=== PATIENT | female | born 1950 | race Caucasian/White ===

== ENCOUNTER 2025-10-07 09:32 | Outpatient (AMB) | payer MEDICARE, SELFPAY ==
--- NOTE | 2025-10-07 09:45 | A.PHYSOV_ITS ---
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 Allergies Penicillins Allergy (Unknown, Verified 10/07/25 09:46) Unknown shellfish derived (shellfish) Allergy (Unknown, Verified 10/06/25 10:57) Unknown PFSH Surgical History Hx of tonsillectomy History of cataract surgery H/O gastric bypass History of carpal tunnel surgery Pacemaker Social History Alcohol intake: current Alcohol intake frequency: does not drink Patient Tobacco Use Status: Never used Tobacco Physical Exam Vital Signs: BMI result Body Mass Index 30.0 Office Procedures AMB Knee Injection AMB Knee Injection Procedure Details: Bilateral Knee injection: The risks, benefits and complications of the left knee injection were discussed with the patient including but not limited to increased serum glucose, infection, nerve pain, fat atrophy, pigment augmentation, bleeding and pain. All questions were answered to the patient's satisfaction. Verbal consent was obtained. The patient was eager to proceed. Using aseptic technique with Betadine, ethyl chloride was then used to desensitize the skin. Using a 22-gauge needle 40 mg of Kenalog and 3 mL 2% lidocaine were injected into the knee joint. A Band-Aid was applied. Patient tolerated the procedure well without immediate complication. Postinjection instructions were given. The procedure was repeated on the right. Knee Injection - : Bilateral All charges added?: Procedure code (CPT) selection complete Office Meds Kenalog 40 mg/mL suspension for injection Performing Provider: MARKO Vuong Per[facility] Administered by: MARKO Vuong on 10/07/25 10:00 Dose Route Admin Location Dispensed Lot Number Expiration Date [facility] [employer] 40 mg intra-articular 1 mL [id number] [employer] Total Dispensed Waste 1 mL 0 % lidocaine (PF) 20 mg/mL (2 %) injection solution Performing Provider: MARKO Vuong [facility] Administered by: MARKO Vuong on 10/07/25 10:00 Dose Route Admin Location Dispensed Lot Number Expiration Date [employer] 60 mg intra-articular 50 mL [id number] Total Dispensed Waste 50 mL 0 % Assessment & Plan Assessment & Plan (1) Bilateral primary osteoarthritis of knee: Code(s): M17.0 - Bilateral primary osteoarthritis of knee Category: Medical Plan Ms. Contreras is a 75-year-old female seen in evaluation today for bilateral knee pain secondary to osteoarthritis. Today she consented to bilateral knee corticosteroid injection. She was given post-injection instructions, recommend: Moist heat compresses for 15 minutes up to 5 times daily. Continue low-impact activities such as walking, biking and swimming. Patient is requesting referral to Orthopedics for potential total knee replacement as her knee is getting much worse. Patient does have the complication of bilateral lower extremity lymphedema. I will place referral today. Follow-up with our office in 3 months as needed. Thank you for allowing me to participate in the care of your patient. Orders: Orders AMB Knee Injection Today M17.0 - Bilateral primary osteoarthritis of knee Referrals Orthopedics Referral M17.0 - Bilateral primary osteoarthritis of knee Coding Level of Care Code Procedure Only Diagnoses Bilateral primary osteoarthritis of knee M17.0 CPT Codes AMB Knee Injection - Hip/Bursa Injection - : Bilateral ([id number])
--- OUTSIDE RECORDS SUMMARY | 2025-10-07 10:27 | XMS_ITS | Encounter Summary ---
Author Organization [facility] Address [address] [place] [address] Care Team Providers Care Dietitian Helper Name Role Phone Jessica Luque MD Primary Care Provider [phone] Encounter Details Date Type Department Care Team (Late st Contact Info) Description 09/07/2025 Results Follow-Up [facility] [address] [place] [id number] Nuno Ventura MD [address] [place] [address] [address] [place] [id number] Social History Tobacco Use Types Packs/Day Years Used Date Smoking Tobacco: Never Smokeless Tobacco: Never Alcohol Use Standard Drinks/Week Comments Yes 7 (1 standard drink = 0.6 oz pur e alcohol) Housing Instability Answer Date Recorde d Are you worried that in the next 2 months you may not have stable housing? No 10/31/2024 Food Access & Nutrition Answer Date Rec orded Do you have access to a vari ety of food including fruits and vegetables? No 10/31/2024 Health Literacy Answer Date Recorded How often do you need to hav e someone help you when you read instructions, pamphlets, or other written material from your doctor or pharmacy? Never 10/31/2024 Caregiver: How often do you need to have someone help you when you read instructions, pamphlets, or other written material from your doctor or pharmacy? Not on file 10/31/2024 Financial Risk Answer Date Recorded How hard is it for you to pa y for the very basics like food, housing, medical care, and air conditioning / heating? Not very hard 10/31/2024 Transportation Answer Date Recorded Has the lack of transportati on kept you from meetings, work, or from getting things needed for daily living? No Has the lack of transportati on kept you from medical appointments or from getting medications? No 10/31/2024 Social Isolation Answer Date Recorded How often do you feel lonely or isolated from th ose around you? Never 10/31/2024 Food Risk Answer Date Recorded Within the past 12 months we worried whether our food would run out before we got money to buy more. Never true 10/31/2024 Within the past 12 months th e food we bought just didn't last and we didn't have money to get more. Never true 10/31/2024 Dependent Care Answer Date Recorded Do you need help finding or paying for care for your loved ones. For example, childcare attendant or elderly care for an older adult? No 10/31/2024 Education Answer Date Recorded Do you think completing more education or training, like finishing a GED, going to college, or learning a trade, would be helpful for you? No 10/31/2024 Living Situation Answer Date Recorded What is your living situation? Unrecognized valu e 10/31/2024 Comments No Sex and Gender Information Value Date Recorded Sex Assigned at Female 08/11/2025 8:34 AM EDT Legal Sex Female 6:22 AM EST Gender Identity Female 04/15/2025 1:41 PM EDT Sexual Orientation Not on file documented as of this encounter Plan of Treatment Upcoming Encounters Date Type Department Care Team (Late st Contact Info) Description 10/08/2025 11:00 AM EST [facility] [address] [facility] [place] [phone] Jessica Luque MD [address] [facility] [place] 08/11/2026 8:30 AM EDT Ancillary Procedure [facility] - [address] [facility] [address] [place] [address] Scheduled Procedures Name Priority Associated Diagnoses Date/Ti me ABLATION A-FIB Paroxysmal atrial fibrillation ([facility] V24, [facility] V28) LEFT ATRIAL APPENDAGE CLOSUR E (OTHER) Paroxysmal atrial fibrillation ([facility] V24, [facility] V28) documented as of this encounter Visit Diagnoses Not on filedocumented in this encounter Additional Health Concerns Assessment Noted Time PHQ-9 Depression Total Score: 1 10/31/20 24 9:30 AM EST documented as of this encounter Care Teams Dietitian Helper Relationship Specialty Start Date End Date Jessica Luque MD [address] [place] [address] PCP - General Internal Medicine 06/03/25 documented as of this encounter
--- OUTSIDE RECORDS SUMMARY | 2025-10-07 10:27 | XMS_ITS | Clinical Summary ---
Author Organization [facility] [address] [place] [address] [place] [phone] Phone Care Team Providers Care Search Engine Optimizer Name Role Phone Jessica Luque MD Primary Care Provider [phone] Allergies Active Allergy Reactions Criticality Noted Date Comments Ceftriaxone 01/10/2019 Other Reaction(s): Other (See Comments), Rash/Dermatitis Erythromycin 01/05/2023 Levothyroxine 09/19/2023 Several constipation, and lower heart rate Montelukast Headache 06/15/2010 Other 01/17/2011 Seasonal allergies- Other Reaction(s): Runny Nose/Rhinitis Oxycodone Nausea And Vomiting 02/01/2015 Penicillin G Benzathine 11/02/2005 Shellfish Derived 01/06/2008 Other Reaction(s): Hives/Urticaria Medications silver sulfADIAZINE (SILVADENE, SSD) 1 % cream Apply to affected area sparingly daily - twice daily to blister/open skin. 4 Active fluticasone propionate (FLONASE) 50 mcg/actuation nasal spray USE 2 SPRAYS IN EACH NOSTRIL ONCE DAILY 2 Active UNABLE TO FIND Take 1 tablet by mouth 1 (one) time each day. Calcium Carbonate-Vit D-Min (CALCIUM 1200 OR) Active loratadine 10 mg capsule Take 1 Cap by mouth daily. Active MULTIVITAMIN ORAL 1 po qd Active vitamin B complex (B COMPLEX ORAL) 1 po qd Active folic acid (FOLVITE) 1 mg tabletIndication s:Macrocytosis Take 1 tablet (1 mg total) by mouth 1 (one) time each day. 30 each 11 4 025 Active zinc oxide 20 % ointment Apply topically if needed for irritation. 56.7 g 11 5 026 Active bisacodyL (DULCOLAX) 5 mg EC tablet Take 2 tablets by mouth right before beginning bowel prep. See instructions provided by the office 2 tablet 5 Active Additional Information Patient not taking.Reported on 07/23/2025 polyethylene glycol (Golytely) 236-22.74-6.74 -5.86 gram solution Take 4L by mouth once for one dose. May substitue any PEG. Starting at 6PM the night before your procedure drink 1 8oz glasses at your own pace until you complete half of the gallon. Finish 2nd half of the gallon 5 hours before your procedure. 4000 mL 5 Active Additional Information Patient not taking.Reported on 07/23/2025 alendronate (FOSAMAX) 70 mg tabletIndication s:Osteoporosis, unspecified osteoporosis type, unspecified pathological fracture presence TAKE 1 TABLET WEEKLY WITH 8 OZ OF WATER. STAY UPRIGHT AND DO NOT LIE DOWN. AVOID FOOD AND DRINK FOR 30 MINUTES. 12 tablet 1 5 Active apixaban (Eliquis) 5 mg tablet TAKE ONE TABLET BY MOUTH TWICE A DAY 180 tablet 3 5 Active atenoloL (TENORMIN) 25 mg tablet TAKE ONE TABLET BY MOUTH EVERY DAY 90 tablet 3 5 Active furosemide (LASIX) 40 mg tablet TAKE ONE TABLET BY MOUTH EVERY DAY 30 tablet 5 5 Active Active Problems Problem Noted Date Diagnosed Date Morbid obesity (CMS/[facility] V24, CMS/[facility] V28) 2024 Murmur, cardiac 04/07/2025 Assessment & Plan (04/07/2025 9:00 AM EDT): As above. Orders: Transthoracic echocardiogram (TTE) complete with PRN contrast, bubble, strain, and 3D order panel; Future Hypertension 04/04/2024 Assessment & Plan (04/07/2025 9:00 AM EDT): Pressure is well-controlled on current antihypertensive regimen; continue atenolol and furosemide. Most recent metabolic panel completed 10/31/2024 shows normal renal function and electrolytes. Sick sinus syndrome (CMS/HCC V24, CMS/HCC V28) 0 12/17/2023 Assessment & Plan (04/07/2025 9:00 AM EDT): Now status post pacemaker placement; we will continue with in office and remote device checks as per device clinic protocol. Orders: ECG 12 lead Subclinical hypothyroidism 06/28/2023 Hyperlipidemia 03/01/2020 Assessment & Plan (04/07/2025 9:00 AM EDT): Most recent lipid panel completed 10/31/2024 showed a total cholesterol of 225, HDL 97, and LDL 111 with triglycerides of 86. While LDL is elevated above 100, HDL is cardioprotective. Has never been on a statin and no interest in doing so. 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 fib, also reviewed with Dr. Blount her wish to take ibuprofen occasionally for her arthritis and significant knee pains. If she has not had any atrial fibrillation in quite some time we can consider taking her off of the Eliquis, if she has had some intermittent atrial fibrillation we may consider starting a PPI and keeping her on Eliquis and allowing her to take intermittent NSAIDs for her significant pain. A more aggressive option is looking into a watchman procedure which I did review in some detail today. Heart rate is controlled on BB, anticoagulated on Eliquis. She understands risk and benefits of anticoagulation and wished to continue. Assessment & Plan (04/07/2025 9:00 AM EDT): 0% burden on most recent device check from January 2025; however, the patient feels as though she may be experiencing very brief episodes. Rate is well-controlled on beta-blockade. She remains anticoagulated with Eliquis for cardioembolic prophylaxis; she would like to come off Eliquis if possible as she states she needs to wear Kevlar sleeves when gardening otherwise she will bruise very easily. She is interested in discussing a Watchman further and we will facilitate an appointment with electrophysiology for this purpose. Until then, she will continue with Eliquis 5 mg twice daily given her [id number]-SADg score of 4 (2 points for age, 1 point for gender modifier, and 1 point for hypertension); this is the appropriate dose for her age of less than 80 years, weight of greater than 60 kg, and creatinine of less than 1.5. She is aware to seek urgent medical attention for any uncontrolled bleeding, signs or symptoms of GI or other internal bleeding, or for any head injury. Mitral regurgitation 12/21/2005 Assessment & Plan (04/07/2025 9:00 AM EDT): Previous echocardiogram showing mild MR in 2019; most recent echocardiogram from February 2024 showing only trace MR. We will continue to monitor this with serial echocardiograms. Given new murmur noted on exam today (not previously documented at past visits) as well as mild shortness of breath with exertion, we will update the echocardiogram for further evaluation of possible underlying valvular dysfunction. Orders: Transthoracic echocardiogram (TTE) complete with PRN contrast, bubble, strain, and 3D order panel; Future Syncope and collapse 12/21/2005 Resolved Problems Problem Noted Date Diagnosed Date Resolved Date COVID-19 11/07/2021 04/08/2025 Overview (09/22/2024): Rapid at home Obesity (BMI 30-39.9) 03/01/20202024 Dermatophytosis of nail 10/15/2019 06/02/2025 Headache 07/13/2011 04/08/2025 Diverticulitis of colon without hemorrhage 12/21/2005 04/08/2025 Major laceration of liver 12/21/2005 Overview (09/22/2024): syncope IMO update Encounters Date Type Department Care Team Description 09/24/[address] [phone] Neelam Kamara, RN 09/24/[address] [address] Neelam Kamara, RN 09/12/2025 1:15 AM EST Ancillary Procedure [facility] Cardiology [facility] [address] [place] [address] 09/11/2025 7:10 AM EST - 09/11/2025 11:59 PM EST Hospital Encounter Radiology Department [address] [address] Encounter for screening mammogram for malignant neoplasm of breast Discharge Disposition: Home or Self Care 09/07/2025 8:32 AM EST - 09/07/2025 11:59 PM EST Hospital Encounter [facility] CT Scan [address] [place] [address] Paroxysmal atrial fibrillation (CMS/HCC V24, CMS/HCC V28) Discharge Disposition: Home or Self Care 09/07/2025 Results Follow-Up [facility] Cardiology [facility] [address] [place] [address] Nuno Ventura MD 08/11/2025 9:00 AM EDT Ancillary Procedure [facility] - [address] [place] [address] Encounter for adjustment or management of cardiac device 08/10/2025 Telephone [facility] Structural Heart [address] [place] [address] Alexsandra Alvarado RN 08/07/2025 Results Follow-Up [facility] [address] [place] [address] Kary Fernandez MA 07/23/2025 8:40 AM EDT Consult [facility] Cardiology [facility] - [facility] [address] [place] [address] Nuno Ventura MD Paroxysmal atrial fibrillation (CMS/HCC V24, CMS/HCC V28) (Primary Dx) 07/23/2025 Telephone [facility] Cardiology [facility] - [facility] [address] [facility] [address] [place] [address] Nuno Ventura MD from Last 3 Months Immunizations Immunization Administration Dates Next Due H1N1 Inj Preservative Free 09/20/2009 Influenza trivalent, 0.5mL ( Fluad) 65yo and older 07/27/2017 Influenza trivalent, with pr eservative (Fluzone; Afluria) 6mo and older 07/19/2021,07/26/2020,08/12/2019,08/05,08/07/2016,08/19/2015,07/28/2013 ,11/17/2012,07/13/2011,09/21/2010,06/2009 Moderna SARS-CoV-2 COVID-19, mRNA, LNP-S, preservative free 01/14/2024,10/05/2022 Pfizer (ages 12 & older) Biv alent, COVID-19 07/30/2023 Pneumococcal conjugate 13 va lent (Prevnar 13, PCV13) 2mo and older 08/23/2015 Pneumococcal polysaccharide 23 valent (Pneumovax 23) 2yo and older 06/18/2017,04/19/2013 Td Tetanus diptheria (Tdvax) 7yo and older 09/19/2023 Tdap Tetanus diptheria acell ular pertussis (Boostrix; Adacel) 7yo and older 10/13/2013,06/22/2009 Zoster Live 08/02/2013,04/30/2013 Zoster recombinant (Shingrix ) 19yo and older 06/18/2021,04/14/2021 Surgical History Surgery Date Site/Laterality Comments PACEMAKER IMPLANT PROCEDURE: HISTORICAL PACEMAKER GASTRIC BYPASS 2000 PROCEDURE: [place] GASTRIC RSTCV W/BYP W/SM INT RCNSTJ LIMIT ABSRPJ; COMMENT: Kyleigh APPENDECTOMY PROCEDURE: HISTORICAL APPENDECTOMY OTHER SURGICAL HISTORY PROCEDURE: [place] ARTHROTOMY W/MENISCUS REPAIR KNEE; COMMENT: right; age 9 OTHER SURGICAL HISTORY PROCEDURE: [place] STAB PHLEBT VARICOSE VEINS 1 XTR > 20 INCS CARPAL TUNNEL RELEASE 12/11,02/08 PROCEDURE: [place] NEUROPLASTY &/TRANSPOS MEDIAN NRV CARPAL TUNNE; COMMENT: [place]: left > right OTHER SURGICAL HISTORY 10/09 PROCEDURE: REPAIR DETACHED RETINA; COMMENT: Sohail; laser TONSILLECTOMY PROCEDURE: HISTORICAL TONSILLECTOMY OTHER SURGICAL HISTORY 09/14 PROCEDURE: NUCLEAR STRESS TEST; COMMENT: [facility]; neg OTHER SURGICAL HISTORY 09/14 PROCEDURE: CAT SCAN OF HEAD/BRAIN NO CONTRAST; COMMENT: [facility]; neg COLONOSCOPY 04/07 PROCEDURE: [place] COLONOSCOPY STOMA DX INCLUDING COLLJ SPEC SPX; COMMENT: Mora; sabra OTHER SURGICAL HISTORY 05/02/13 PROCEDURE: COLON CA SCRN NOT HI RSK IND; COMMENT: tics; repeat in ten yrs STOMACH SURGERY PROCEDURE: [place] UNLISTED PROCEDURE STOMACH; COMMENT: Bypass PACEMAKER IMPLANT PROCEDURE: HISTORICAL PACEMAKER OTHER SURGICAL HISTORY PROCEDURE: [place] ANES CARDIAC ELECTROPHYSIOL STDY W/RF ABLATION BREAST LUMPECTOMY Left PROCEDURE: HISTORICAL BREAST LUMPECTOMY; COMMENT: left; benign BREAST BIOPSY 2012 Left PROCEDURE: BX BREAST; PERC NEEDLE CORE W/IMAG GUID; COMMENT: neg Medical History Medical History Date Comments Cardiac pacemaker in situ 05/09/2006 DX:Car diac pacemaker in situ; COMMENT: 12/11 Heart disease, unspecified DX:He art disease, unspecified Headache(784.0) 07/13/2011 DX:Headache(784. 0) Lymphedema of both lower extremities 12/27/2015 DX:Lymphedema of both lower extremities Chronic venous stasis dermat itis of both lower extremities 12/27/2015 DX:Chronic venous stasis cristóbal matitis of both lower extremities Subclinical hypothyroidism 06/28/2023 DX:Galvez bclinical hypothyroidism Osteoarthritis DX:Osteoarthriti s Hypertension 04/04/2024 DX:Hypertension Hypertension 04/04/2024 Family History Medical History Relation Name Comments No Known Problems Brother x2 Obesity Daughter x2 Other Dermatological Disorders Daughter x2 pcos Other: degenerative joint disease Daughter x2 Diabetes Father Hypertension Mother Stroke Mother Heart attack Paternal Grandfather No Known Problems Sister Blindness Neg Hx Breast cancer Neg Hx Cataracts Neg Hx Glaucoma Neg Hx Macular degeneration Neg Hx Strabismus Neg Hx Relation Name Status Comments Brother x2 Alive Daughter x2 Alive Father Mother Paternal Grandfather Sister Alive Son Alive Social History Tobacco Use Types Packs/Day Years Used Date Smoking Tobacco: Never Smokeless Tobacco: Never Tobacco Cessation:Counseling Given: Not Answered Alcohol Use Standard Drinks/Week Comments Yes 7 [...] care for your loved ones. For example, teacher early childhood development or elderly care for an older adult? [...] PM EDT Sexual Orientation Not on file Obstetrics History Para Term AB IAB SAB Ectopic Multiple Livin g Live Births 3 3 3 3 Date Outcome GA Total Labor Labor/2nd/3rd Weight Sex Type Anes PTL Annamaria A1 A5 Name Clin Term Term Term Last Filed Vital Signs Vital Sign Reading Time Taken Comments Blood Pressure 140/82 07/23/2025 8:32 AM EDT Pulse 71 07/23/2025 8:32 AM EDT Temperature 36.7 C (98.1 F) 04/08/2025 9:50 AM EDT Respiratory Rate - - Oxygen Saturation 87% 07/23/2025 8:32 AM EDT Inhaled Oxygen Concentration - - Weight 84.4 kg (186 lb) 07/23/2025 8:32 AM EDT Height 165.1 cm (5' 5 ) 07/23/2025 8:32 AM EDT Body Mass Index 30.95 07/23/2025 8:32 AM EDT Plan of Treatment Upcoming Encounters Date Type Department Care Team (Late st Contact Info) Description 10/08/2025 11:00 AM EST Office Visit [facility] [address] [facility] [place] [phone] Jessica Luque MD [address] [place], [place] 08/11/2026 8:30 AM EDT Ancillary Procedure [facility] [address] [facility] [address] [place] [address] Scheduled Procedures Name Priority Associated Diagnoses Date/Ti me ABLATION A-FIB Paroxysmal atrial fibrillation (CMS/HCC V24, CMS/HCC V28) LEFT ATRIAL APPENDAGE CLOSUR E (OTHER) Paroxysmal atrial fibrillation (CMS/HCC V24, CMS/HCC V28) Health Maintenance Due Date Last Done Comments Depression Screening 11/05/2024 10/31/2024 Falls Risk Assessment 10/31/2025 10/31/2024 Medicare Annual Wellness Visit 10/31/2025 10/31/2024 Social Influencers of Health Screening 10/31/2025 10/31/2024 COVID-19 Vaccine ( season) 2026 07/18/2025, 03/16/2025, 08/04/2024, Additional history exists Hypertension/CHF/CAD Annual BMP Blood Test 08/07/2026 08/07/2025, 10/31/2024, 01/21/2024 Cholesterol Screening (Lipid Panel) 08/07/2030 08/07/2025, 10/31/2024, 01/21/2024 Osteoporosis Screening (Bone Density Screening) 07/05/2033 07/05/2023, 01/14/2020, 07/25/2017 DTaP,Tdap,and Td Vaccines (4 - Td or Tdap) 09/19/2033 09/19/2023, 10/13/2013, 06/22/2009 Hepatitis C Screening Completed 06/29/2015 Pneumococcal Vaccine: 50+ Years Completed 06/18/2017, 08/23/2015, 04/19/2013 Zoster Vaccines Completed 06/18/2021, 04/05, 08/02/2013, Additional history exists RSV Immunization Adult Patients Completed 07/25/2023 Influenza Vaccine Completed 07/18/2025, , 07/25/2023, Additional history exists Breast Cancer Screening Discontinued 09/11/20, 09/10/2024, 09/04/2023, Additional history exists HIB Vaccines Aged Out No longer eligi ble based on patient's age to complete this topic HPV Vaccines Aged Out No longer eligi ble based on patient's age to complete this topic Hepatitis A Vaccines Aged Out No long er eligible based on patient's age to complete this topic Hepatitis B Vaccines Aged Out No long er eligible based on patient's age to complete this topic IPV Vaccines Aged Out No longer eligi ble based on patient's age to complete this topic MMR Vaccines Aged Out No longer eligi ble based on patient's age to complete this topic Meningococcal ACWY Vaccine Aged Out N o longer eligible based on patient's age to complete this topic Meningococcal B Vaccine Aged Out No l onger eligible based on patient's age to complete this topic RSV Immunization Patients Under 20 months Aged Out No longer eligible based on patient's age to complete this topic Varicella Vaccines Aged Out No longer eligible based on patient's age to complete this topic Medical Devices Implanted Type Area Electrologist Device Identifier Shelf Expiration Date Model / Serial / Lot Erika-Bc Akin Guerrier [id number] Implanted:04/05 (Quantity not on file) Cardiac Pacemaker [employer] AKIN GUERRIER / [id number] / Procedures Procedure Name Priority Date/Time Associated Diagnosis Comments CARDIAC DEVICE CHECK- REMOTE- MURJ Routine 09/12/2025 1:10 AM EST MG MAMMO DIGITAL SCREENING W MILO BILAT Routine 09/11/2025 7:51 AM EST Encounter for screening mammogram for malignant neoplasm of breast CT ANGIO HEART W 3D IMAGING/FUNCTION Routine 09/07/2025 9:24 AM EST Paroxysmal atrial fibrillation (CMS/HCC V24, CMS/HCC V28) CARDIAC DEVICE CHECK- IN CLINIC- MURJ Routine 08/11/2025 11:02 AM EDT Encounter for adjustment or management of cardiac device THYROID STIMULATING HORMONE Routine 08/07/2025 10:54 AM EDT Screening for metabolic disorder LIPID PANEL WITH REFLEX TO DIRECT LDL Routine 08/07/2025 10:54 AM EDT Screening for metabolic disorder COMPREHENSIVE METABOLIC PANEL Routine 08/07/2025 10:54 AM EDT Screening for metabolic disorder ECG 12-LEAD Routine 07/23/2025 9:34 AM EDT Paroxysmal atrial fibrillation (CMS/HCC V24, CMS/HCC V28) DXA BONE DENSITY STUDY 1+ SITS AXIAL SKEL Routine 07/05/2023 8:50 AM EDT Encounter for screening for osteoporosis HM HEPATITIS C SCREENING Routine 06/29/2015 from Last 3 Months or Most Recently Relevant to Health Maintenance Results * Cardiac device check - Remote- MURJ (09/12/2025 1:10 AM EST) Date Time Interrogation Session [id number] CV DEVICE CHECK Type Interrogation Session Remote CV DEVICE CHECK Implantable Pulse Generator Electrologist BIO CV DEVICE CHECK Implantable Pulse Generator Type IPG CV DEVICE CHECK Implantable Pulse Generator Model Evia DR-T CV DEVICE CHECK Implantable Pulse Generator Serial Number [id number] CV DEVICE CHECK Implantable Pulse Generator Implant Date [id number] CV DEVICE CHECK Battery Remaining Percentage 30.00 CV DEVICE CHECK Battery Status Middle of Service CV DEVICE CHECK Jasen Statistic RA Percent Paced 87.00 CV DEVICE CHECK Jasen Statistic RV Percent Paced 0.00 CV DEVICE CHECK Atrial Tachy Statistic AT/AF [place] Percent 0.00 CV DEVICE CHECK Lead Channel Sensing Intrinsic Amplitude 0.800 CV DEVICE CHECK Lead Channel Impedance Value 468 CV DEVICE CHECK Lead Channel Pacing Threshold Amplitude 0.500 CV DEVICE CHECK Lead Channel Pacing Threshold Pulse Width 0.4 CV DEVICE CHECK Lead Channel RA Pacing Threshold Date 2025-09-07 CV DEVICE CHECK Lead Channel Setting Pacing Pulse Width 0.4 CV DEVICE CHECK Lead Channel Sensing Intrinsic Amplitude 9.200 CV DEVICE CHECK Lead Channel Impedance Value 527 CV DEVICE CHECK Lead Channel RV Pacing Threshold Date 2025-09-07 CV DEVICE CHECK Lead Channel Setting Pacing Amplitude 2.000 CV DEVICE CHECK Lead Channel Setting Pacing Pulse Width 0.4 CV DEVICE CHECK Jasen Setting Mode (NBG Code) DDD-CLS CV DEVICE CHECK Jasen Setting Lower Rate Limit 65 CV DEVICE CHECK Jasen Setting AT Mode Switch Rate 160 CV DEVICE CHECK Jasen Setting Maximum Tracking Rate 110 CV DEVICE CHECK Jasen Setting Maximum Sensor Rate 105 CV DEVICE CHECK Jasen Setting PAV Delay 270 CV DEVICE CHECK Jasen Setting JEIMY Delay 270 CV DEVICE CHECK Date of Service 2025-09-11 CV DEVICE CHECK Anatomical Region Laterality Modality Device Interroga tion 09/07/2025 9:02 PM EST Impressions 09/11/2025 11:34 AM EST Normal Remote: No Events * Normal Device Function * Alerts or events: None * Battery: Battery is at 30%, * Sensing, impedance and thresholds reviewed * Programmed parameters reviewed * Presenting rhythm reviewed * Heart Rate Histograms reviewed * No significant changes noted Narrative Procedure Note Nuno Ventura MD - 09/12/2025 IMPRESSION: Normal Remote: No Events * Normal Device Function * Alerts or events: None * Battery: Battery is at 30%, * Sensing, impedance and thresholds reviewed * Programmed parameters reviewed * Presenting rhythm reviewed * Heart Rate Histograms reviewed * No significant changes noted us Nuno Ventura MD CV IMPLANTABLE CARDIAC DEVICE PROCEDURES Final Result * MG Mammo Digital Screening w Milo bilat (09/11/2025 7:51 AM EST) Anatomical Region Laterality Modality Breast Bilateral Mammography 09/14/2025 2:09 PM EST Impressions 09/14/2025 2:15 PM EST No mammographic evidence of malignancy. BREAST DENSITY: B - There are scattered areas of fibroglandular density. BI-RADS CATEGORY: 2 - BENIGN RECOMMENDATION: Screening bilateral mammogram is recommended in 1 year. MAMMO LOCATION: [facility], [address] [place] [address], [phone], . -------- FINAL REPORT -------- Dictated By: Sandra Farr Dictated Date: 09/14/2025 14:09 ET Assigned Physician: Sandra Farr Reviewed and Electronically Signed By: Sandra Farr Signed Date: 09/14/2025 14:15 ET Workstation ID: [id number] Transcribed By: Self Edit Transcribed Date: 09/14/2025 14:09 ET Narrative 09/14/2025 2:15 PM EST EXAM: Screening Mammogram CLINICAL: 75 years old, Female, routine annual exam. History of remote benign left excisional biopsy. History of a benign left ultrasound-guided core biopsy on 06/09/2013. COMPARISON: 09/10/2024 and as far back as 08/26/2021 TECHNIQUE: Bilateral MLO and CC views were obtained digitally with 3-D mammogram (digital breast tomosynthesis). Computer-aided detection was utilized in evaluation of this exam (CAD). Pacemaker battery pack superimposes the left axillary region limiting regional assessment. FINDINGS: Stable postsurgical distortion in the upper outer left breast. No new suspicious mass or suspicious architectural distortion. Scattered bilateral coarse calcifications again noted which have similar appearance in both breasts. No dominant suspicious grouping of calcifications. Procedure Note Sandra Farr MD - 09/14/2025 EXAM: Screening Mammogram CLINICAL: 75 years old, Female, routine annual exam. History of remotebenign left excisional biopsy. History of a benign left ultrasound-guidedcore biopsy on 06/09/2013. COMPARISON: 09/10/2024 and as far back as 08/26/2021 TECHNIQUE: Bilateral MLO and CC views were obtained digitally with 3-Dmammogram (digital breast tomosynthesis). Computer-aided detection wasutilized in evaluation of this exam (CAD). Pacemaker battery packsuperimposes the left axillary region limiting regional assessment. FINDINGS: Stable postsurgical distortion in the upper outer left breast. No newsuspicious mass or suspicious architectural distortion. Scatteredbilateral coarse calcifications again noted which have similar appearancein both breasts. No dominant suspicious grouping of calcifications. IMPRESSION: No mammographic evidence of malignancy. BREAST DENSITY: B - There are scattered areas of fibroglandular density. BI-RADS CATEGORY: 2 - BENIGN RECOMMENDATION: Screening bilateral mammogram is recommended in 1 year. MAMMO LOCATION: [facility], [address] [place] [address], [phone], . -------- FINAL REPORT -------- Dictated By: Sandra Farr Dictated Date: 09/14/2025 14:09 ET Assigned Physician: Sandra Farr Reviewed and Electronically Signed By: Sandra Farr Signed Date: 09/14/2025 14:15 ET Workstation ID: [id number] Transcribed By: Self Edit Transcribed Date: 09/14/2025 14:09 ET us Jessica Luque MD IMG BI PROCEDURES Final Result * CT Angio Heart w 3D Imaging/Function (09/07/2025 9:24 AM EST) Anatomical Region Laterality Modality Body Computed Tomogra phy 09/07/2025 12:0 8 PM EST Impressions 09/07/2025 12:18 PM EST Impression: No left atrial dilatation and without thrombus in the left atrial appendage. The base of the appendage measures in the range of 2.3 cm. Calcified coronary artery disease, as described. Correlate clinically. Mild subaortic septal hypertrophy. Aortic valve sclerosis. Coronary circulation is right dominant. No aneurysm or dissection of the thoracic aorta. Thank you very much for the referral. -------- FINAL REPORT -------- Dictated By: Jose Kat Dictated Date: 09/07/2025 12:08 ET Assigned Physician: Jose Kat Reviewed and Electronically Signed By: Jose Kat Signed Date: 09/07/2025 12:18 ET Workstation ID: [id number] Transcribed By: Self Edit Transcribed Date: 09/07/2025 12:08 ET Narrative 09/07/2025 12:18 PM EST Diagnosis: atrial fibrillation Pre Watchman Procedure. CARDIAC CT ANGIOGRAPHY Technique: ECG gated CT angiography the heart was acquired with 120 Kv technique following IV administration of 81 CC's of Isovue 370. The Kv technique was chosen based on the patient's body habitus. Images were reconstructed multiplanar and reviewed in 2D, 3-D, curved MPR and MIP. Findings: The study quality: Diagnostic. Left atrium measures in the range of 3.6 cm. Basal left atrial appendage is measured at 2.3 cm. Windsock morphology of the left atrial appendage without thrombus. Implanted dual-chamber pacemaker with generator in the left chest wall. Spotty calcifications in the aortic left and noncoronary cusps. Mild subaortic septal hypertrophy. No pericardial effusion. Adjacent lungs are free of infiltrates. No aneurysm or dissection of the thoracic aorta. Coronary circulation is right dominant. Left main coronary artery: The left main coronary artery is of average length and large caliber. No plaques in the left main. The left main trifurcates in to the LADis and left circumflex coronary artery. Left anterior descending coronary artery: The LAD is a long artery of large caliber. It gives origin to diagonal and septal pharmacy technology instructor branches. Calcified plaque in the ostium of the left anterior descending causing 40% or greater obstruction. Spotty calcified plaque in the mid left anterior descending causing 20-30% obstruction. No additional plaques in these branches. Left circumflex coronary artery: The left circumflex is a moderate caliber artery of average length. It gives origin to obtuse marginal branches. This eccentric calcified plaque at the ostium of the circumflex causing 10-20% obstruction. No additional plaques in these branches. Right coronary artery: The RCA is a long artery of large caliber. It gives origin to acute marginal branches, the posterior descending artery and posterolateral ventricular branch. No plaques in these branches. Ramus intermedius artery: Ramus is a large caliber branch without plaque. Procedure Note Jose Kat MD - 09/07/2025 Diagnosis: atrial fibrillation Pre Watchman Procedure. CARDIAC CT ANGIOGRAPHY Technique: ECG gated CT angiography the heart was acquired with 120 Kv techniquefollowing IV administration of 81 CC's of Isovue 370. The Kv technique was chosen based on the patient's body habitus. Images were reconstructed multiplanar and reviewed in 2D, 3-D, curved MPRand MIP. Findings: The study quality: Diagnostic. Left atrium measures in the range of 3.6 cm. Basal left atrial appendageis measured at 2.3 cm. Windsock morphology of the left atrial appendage without thrombus. Implanted dual-chamber pacemaker with generator in the left chest wall. Spotty calcifications in the aortic left and noncoronary cusps. Mild subaortic septal hypertrophy. No pericardial effusion. Adjacent lungs are free of infiltrates. No aneurysm or dissection of the thoracic aorta. Coronary circulation is right dominant. Left main coronary artery: The left main coronary artery is of average length and large caliber. No plaques in the left main. The left main trifurcates in to the LADis and left circumflex coronaryartery. Left anterior descending coronary artery: The LAD is a long artery of large caliber. It gives origin to diagonal andseptal pharmacy technology instructor branches. Calcified plaque in the ostium of the left anterior descending causing 40%or greater obstruction. Spotty calcified plaque in the mid left anteriordescending causing 20-30% obstruction. No additional plaques in thesebranches. Left circumflex coronary artery: The left circumflex is a moderate caliber artery of average length. Itgives origin to obtuse marginal branches. This eccentric calcified plaque at the ostium of the circumflex ginbxsd32-32% obstruction. No additional plaques in these branches. Right coronary artery: The RCA is a long artery of large caliber. It gives origin to acutemarginal branches, the posterior descending artery and posterolateralventricular branch. No plaques in these branches. Ramus intermedius artery: Ramus is a large caliber branch without plaque. IMPRESSION: Impression: No left atrial dilatation and without thrombus in the left atrialappendage. The base of the appendage measures in the range of 2.3 cm. Calcified coronary artery disease, as described. Correlate clinically. Mild subaortic septal hypertrophy. Aortic valve sclerosis. Coronary circulation is right dominant. No aneurysm or dissection of the thoracic aorta. Thank you very much for the referral. -------- FINAL REPORT -------- Dictated By: Jose Kat Dictated Date: 09/07/2025 12:08 ET Assigned Physician: Jose Kat Reviewed and Electronically Signed By: Jose Kat Signed Date: 09/07/2025 12:18 ET Workstation ID: [id number] Transcribed By: Self Edit Transcribed Date: 09/07/2025 12:08 ET Nuno Ventura MD [facility] CT PROCEDURES Final Result * [place]ARDIAC [place]ICE [place] [facility] [place]08/11/[place]25 11:02 AM EDT) Date Time Interrogation Session [id number] CV DEVICE CHECK Implantable Pulse Generator Electrologist BIO CV DEVICE CHECK Implantable Pulse Generator Type IPG CV DEVICE CHECK Implantable Pulse Generator Model Evia DR-T CV DEVICE CHECK Implantable Pulse Generator Serial Number [id number] CV DEVICE CHECK Implantable Pulse Generator Implant Date [id number] CV DEVICE CHECK Battery Status Middle of Service CV DEVICE CHECK Lead Channel Sensing Intrinsic Amplitude 0.800 CV DEVICE CHECK Lead Channel Impedance Value 487 CV DEVICE CHECK Lead Channel Pacing Threshold Amplitude 1.000 CV DEVICE CHECK Lead Channel Pacing Threshold Pulse Width 0.4 CV DEVICE CHECK Lead Channel Setting Pacing Amplitude 1.600 CV DEVICE CHECK Lead Channel Setting Pacing Pulse Width 0.4 CV DEVICE CHECK Lead Channel Sensing Intrinsic Amplitude 8.800 CV DEVICE CHECK Lead Channel Impedance Value 565 CV DEVICE CHECK Lead Channel Pacing Threshold Amplitude 0.900 CV DEVICE CHECK Lead Channel Pacing Threshold Pulse Width 0.4 CV DEVICE CHECK Lead Channel Setting Pacing Amplitude 2.000 CV DEVICE CHECK Lead Channel Setting Pacing Pulse Width 0.4 CV DEVICE CHECK Jasen Setting Mode (NBG Code) DDD-CLS CV DEVICE CHECK Jasen Setting Lower Rate Limit 65 CV DEVICE CHECK Jasen Setting AT Mode Switch Rate 160 CV DEVICE CHECK Jasen Setting Maximum Tracking Rate 110 CV DEVICE CHECK Jasen Setting Maximum Sensor Rate 105 CV DEVICE CHECK Jasen Setting PAV Delay 270 CV DEVICE CHECK Date of Service 2025-08-11 CV DEVICE CHECK Anatomical Region Laterality Modality Device Interroga tion 08/11/2025 Impressions 08/11/2025 2:06 PM EDT Normal In-Office: No Events * Normal Device Function * Alerts or events: None * Battery: MOS, 2.3 YEARS * Sensing, impedance and thresholds reviewed and tested * Presenting Rhythm: AP-VS 72 bpm * Underlying Rhythm: -VS 50s * Heart Rate Histograms reviewed * Pacing and Detection Parameters were evaluated Narrative Procedure Note Nuno Ventura MD - 08/11/2025 IMPRESSION: Normal In-Office: No Events * Normal Device Function * Alerts or events: None * Battery: MOS, 2.3 YEARS * Sensing, impedance and thresholds reviewed and tested * Presenting Rhythm: AP-VS 72 bpm * Underlying Rhythm: -VS 50s * Heart Rate Histograms reviewed * Pacing and Detection Parameters were evaluated us Order Referral Cardiovascular CV IMPLANTABLE CAR DIAC DEVICE PROCEDURES Final Result * (ABNORMAL) Lipid panel with reflex to direct LDL (08/07/2025 10:54 AM EDT) [facility] Signature Cholesterol 213(H) 0 - 200 mg/dL LAB CHEMISTRY METHOD 08/07/2025 3:45 PM EDT [facility] Triglycerides 83 0 - 150 mg/dL LAB CHEMISTRY METHOD 08/07/2025 3:45 PM EDT [facility] HDL 103 >=40 mg/dL LAB CHEMISTRY METHOD 08/07/2025 3:45 PM EDT [facility] LDL Calculated 93 0 - 100 mg/dL LAB CHEMISTRY METHOD 08/07/2025 3:45 PM EDT [facility] Comment:Estimated LDL Calcul ated using equation: Total cholesterol - HDL cholesterol - (Triglycerides/5) VLDL Cholesterol Alcon 16.6 mg/dL LAB CHEMISTRY METHOD 08/07/2025 3:45 PM EDT [facility] Non HDL Chol. (LDL+VLDL) 110 <145 mg/dL LAB CHEMISTRY METHOD 08/07/2025 3:45 PM EDT [facility] Chol/HDL Ratio 2.1 0.0 - 4.4 LAB CHEMISTRY METHOD 08/07/2025 3:45 PM EDT [facility] Blood Venous blood specimen / Unknown Venipuncture / Unknown 08/07/2025 10:54 AM EDT 08/07/2025 10:54 AM EDT Rosina Horn NP LAB BLOOD ORDERABLES Final R esult [facility] [address] [place] [address], * (ABNORMAL) Thyroid stimulating hormone (08/07/2025 10:54 AM EDT) TSH 4.66(H) 0.40 - 4.00 mcIU/mL LAB CHEMISTRY METHOD 08/07/2025 4:25 PM EDT [facility] Blood Venous blood specimen / Unknown Venipuncture / Unknown 08/07/2025 10:54 AM EDT 08/07/2025 10:54 AM EDT Rosina Horn METAL CONTAINER MAKER LAB BLOOD ORDERABLES Final R esult [facility] [address] [place] [address], * Comprehensive metabolic panel (08/07/2025 10:54 AM EDT) Sodium 138 133 - 145 mmol/L LAB CHEMISTRY METHOD 08/07/2025 3:[address] [facility] Potassium 3.8 3.5 - 5.5 mmol/L LAB CHEMISTRY METHOD 08/07/2025 3:[address] [facility] Chloride 101 96 - 110 mmol/L LAB CHEMISTRY METHOD 08/07/2025 3:[address] [facility] CO2 32 21 - 32 mmol/L LAB CHEMISTRY METHOD 08/07/2025 3:[address] [facility] Anion Gap 5 3 - 11 LAB CHEMISTRY METHOD 08/07/2025 3:[address] [facility] Glucose 84 70 - 100 mg/dL LAB CHEMISTRY METHOD 08/07/2025 3:[address] [facility] BUN 19 5 - 25 mg/dL LAB CHEMISTRY METHOD 08/07/2025 3:[address] [facility] Creatinine 0.85 0.50 - 1.10 mg/dL LAB CHEMISTRY METHOD 08/07/2025 3:[address] [facility] eGFR 71 >=60 mL/min/1. 73m2 LAB CHEMISTRY METHOD 08/07/2025 3:[address] [facility] Comment:Calculation based on the Chronic Kidney Disease Epidemiology Collaboration (CKD-EPI) equation refit without adjustment for race. BUN/Creatinine Ratio 22.4 LAB CHEMISTRY METHOD 08/07/2025 3:[address] [facility] Calcium 9.5 8.5 - 10.5 mg/dL LAB CHEMISTRY METHOD 08/07/2025 3:[address] [facility] AST (SGOT) 35 10 - 42 unit/L LAB CHEMISTRY METHOD 08/07/2025 3:39 PM EDT [facility] ALT (SGPT) 29 10 - 60 unit/L LAB CHEMISTRY METHOD 08/07/2025 3:39 PM EDT [facility] Alkaline Phosphatase 101 42 - 121 unit/L LAB CHEMISTRY METHOD 08/07/2025 3:39 PM EDT [facility] Total Protein 6.4 6.0 - 8.0 g/dL LAB CHEMISTRY METHOD 08/07/2025 3:39 PM EDT [facility] Albumin 3.8 3.2 - 5.0 g/dL LAB CHEMISTRY METHOD 08/07/2025 3:39 PM EDT [facility] Total Bilirubin 1.0 0.0 - 1.4 mg/dL LAB CHEMISTRY METHOD 08/07/2025 3:39 PM EDT [facility] Blood Venous blood specimen / Unknown Venipuncture / Unknown 08/07/2025 10:54 AM EDT 08/07/2025 10:54 AM EDT us Rosina Horn NP LAB BLOOD ORDERABLES Final R esult [facility] [address] [place] [address], * ECG 12 lead (07/23/2025 9:34 AM EDT) Ventricular Rate ECG 71 BPM GEMUSE Atrial Rate 71 BPM GEMUSE P-R Interval 264 ms GEMUSE QRS Duration 94 ms GEMUSE Q-T Interval 380 ms GEMUSE QTc 412 ms GEMUSE P Wave [place] 56 degrees GEMUSE R [place] 53 degrees GEMUSE T [place] 52 degrees GEMUSE ECG Interpretation Atrial-paced rhythm with prolonged AV conduction Abnormal ECG When compared with ECG of 07-APR-2025 07:47, No significant change was found Confirmed by Hussein VENTURA JOHN ([id number]) on 07/27/2025 8:19:22 AM GEMUSE 07/23/2025 8:39 AM EDT 07/27/2025 8:19 AM EDT us Nuno Ventura MD ECG ORDERABLES Edited Result - Final GEMUSE * DXA BONE DENSITY STUDY 1+ SITS AXIAL SKEL (07/05/2023 8:50 AM EDT) Anatomical Region Laterality Modality Bone Densitometr y 06/15/2022 11:5 8 AM EDT Narrative 07/05/2023 6:25 PM EDT BONE DENSITY SCAN (DEXA): FINDINGS: Lumbar Spine T-score is -1.2. (SD relative to 20-29 y/o adult) Z-score is 1.1. (SD relative to age matched peers) This is considered osteopenia by WHO criteria. Left Hip T-score is -2.3. Z-score is -0.3. This is considered osteopenia by WHO criteria. Comparison exam(s): 01/14/2020. No statistically significant change in bone mineral density. Lateral survey view of the thoracolumbar spine shows no significant compression deformities. IMPRESSION: IMPRESSION: Osteopenia by WHO criteria. This patient has a 20% risk of major osteoporotic fracture and a 5.8% risk of hip fracture over the next 10 years. (World Health Organization Fracture Risk Assessment) [facility] Department of Internal Medicine recommends using National Osteoporosis Foundation (NOF) guidelines in treatment decisions related to osteoporosis. NOF guidelines suggest considering treatment for postmenopausal women and men aged 50 or older presenting with the following: History of hip or vertebral fracture. T-score = -2.5 (DXA) at the femoral neck, total hip, or spine, after appropriate evaluation to exclude secondary causes. Low bone mass (T-score between -1.0 and -2.5 at the femoral neck or spine) AND a 10-year probability of a hip fracture = 3% OR a 10-year probability of a major osteoporosis-related fracture = 20% based on the [place]-adapted WHO algorithm Please note that all treatment decisions require clinical judgment and consideration of individual patient factors, including patient preferences, co-morbidities, previous drug use, risk factors not captured in the FRAX model (e.g., frailty, falls, vitamin D deficiency, increased bone turnover, interval significant decline in bone density) and possible under- or over-estimation of fracture risk by FRAX. Optional alternative screening schedule based on olya Frances., [facility] November 23, 2011 for patients with osteopenia (based on hip BMD T-score) is as follows: * advanced osteopenia (T scores -2.00 to -2.49), BMD testing every year * moderate osteopenia (T scores -1.50 to -1.99), BMD testing every 5 years mild osteopenia or normal BMD (T scores -1.50 and higher), BMD testing every 15 years Procedure Note Sandra Farr MD - 12/10/2023 BONE DENSITY SCAN (DEXA): FINDINGS: Lumbar Spine T-score is -1.2. (SD relative to 20-29 y/o adult) Z-score is 1.1. (SD relative to age matched peers) This is considered osteopenia by WHO criteria. Left Hip T-score is -2.3. Z-score is -0.3. This is considered osteopenia by WHO criteria. Comparison exam(s): 01/14/2020. No statistically significant change inbone mineral density. Lateral survey view of the thoracolumbar spine shows no significantcompression deformities. IMPRESSION: IMPRESSION: Osteopenia by WHO criteria. This patient has a 20% risk of majorosteoporotic fracture and a 5.8% risk of hip fracture over the next 10 years. (World HealthOrganization Fracture Risk Assessment) [facility] Department of Internal Medicine recommendsusing National Osteoporosis Foundation (NOF) guidelines in treatment decisions related toosteoporosis. NOF guidelines suggest considering treatment for postmenopausal women and menaged 50 or older presenting with the following: History of hip or vertebral fracture. T-score = -2.5 (DXA) at the femoral neck, total hip, or spine, afterappropriate evaluation to exclude secondary causes. Low bone mass (T-score between -1.0 and -2.5 at the femoral neck or spine)AND a 10-year probability of a hip fracture = 3% OR a 10-year probability of a majorosteoporosis-related fracture = 20% based on the [place]-adapted WHO algorithm Please note that all treatment decisions require clinical judgment andconsideration of individual patient factors, including patient preferences, co- morbidities,previous drug use, risk factors not captured in the FRAX model (e.g., frailty, falls, vitaminD deficiency, increased bone turnover, interval significant decline in bone density) andpossible under- or over-estimation of fracture risk by FRAX. Optional alternative screening schedule based on katie Frances al., NEJMJanuary 2011 for patients with osteopenia (based on hip BMD T-score) is as follows: * advanced osteopenia (T scores -2.00 to -2.49), BMD testing every year * moderate osteopenia (T scores -1.50 to -1.99), BMD testing every 5years mild osteopenia or normal BMD (T scores -1.50 and higher), BMD testingevery 15 years Jordan Wesley MD IMG DXA PROCEDURES Final Result * Hepatitis C Screening (06/29/2015) [facility] Hepatitis C Screening abstracted Historical Provider HEALTH MAINTENANCE Final Result from Last 3 Months or Most Recently Relevant to Health Maintenance Insurance MEDICARE [facility] Care Teams Search Engine Optimizer Relationship Specialty Start Date End Date Jessica Luque MD [address] [facility] [place] [id number] PCP - General Internal Medicine 06/03/25
--- OUTSIDE RECORDS SUMMARY | 2025-10-07 10:27 | XMS_ITS | Encounter Summary ---
Author Organization [facility] Address [address] [place] [address] Care Team Providers Care Electric Milkers Installer Name Role Phone Jessica Luque MD Primary Care Provider [phone] Reason for Referral * Consultation (Routine) - Authorized Specialty Diagnoses / Procedures Referred By Kamar de la vega Referred To Contact Endocrinology Diagnoses Abnormal TSH Rosina Caceres NP [address] [place] [address] Phone: tel: fax: Endocrinology [address] [address] Phone: tel: fax: Referral ID Status Reason Start Date Expiration Date Visits Requested Visits Authorized [id number] Authorized Specialty Services Required 08/10/2025 08/10/2026 1 1 Encounter Details Date Type Department Care Team (Late st Contact Info) Description 08/07/2025 Results Follow-Up Internal Medicine - [address] [phone] Kary Fernandez [place] Social History Tobacco Use Types Packs/Day Years [...] care for your loved ones. For example, children counselor or elderly care for an older adult? [...] AM EST Office Visit Internal Medicine - [facility] [address] [place], [place] [phone] Jsesica Luque MD [address] [place] [address] 08/11/2026 8:30 AM EDT Ancillary Procedure [facility] [address] [facility] [address] [place] [id number] Scheduled Procedures Name Priority Associated Diagnoses Date/Ti me ABLATION A-FIB Paroxysmal atrial fibrillation ([facility] V24, [facility] V28) LEFT ATRIAL APPENDAGE CLOSUR E (OTHER) Paroxysmal atrial fibrillation ([facility] V24, [facility] V28) Scheduled Referrals Name Type Priority Associated Diagnoses Order Schedule Ambulatory referral to Endocrinology Outpatient Referral Routine Abnormal TSH 1 Occurrences starting 08/10/2025 until 08/10/2026 documented as of this encounter Visit Diagnoses Diagnosis Abnormal TSH- Primary Encounter for adjustment or management of cardiac device documented in this encounter Additional Health Concerns Assessment Noted Time PHQ-9 Depression Total Score: 1 10/31/20 24 9:30 AM EST documented as of this encounter Care Teams Electric Milkers Installer Relationship Specialty Start Date End Date Jessica Luque MD [address] [place] [address] PCP - General Internal Medicine 06/03/25 documented as of this encounter
--- OUTSIDE RECORDS SUMMARY | 2025-10-07 10:27 | XMS_ITS ---
Author Name [facility] Organization Unknown History of Medication Use Medication Directions Dispensed Refills Start Date End Date Stat us iopamidoL (ISOVUE-370) 370 mg iodine /mL (76 %) injection 81 mL 81 mL, intravenous, Once in imaging, Starting on Sun09/07/25 at 0930, For 1 dose 09/07/2025 09/07/2025 completed sodium chloride 0.9 % flush 10 mL 10 mL, intravenous, Once, On Sun09/07/25 at 0930, For 1 dose 09/07/2025 09/07/2025 completed sodium chloride 0.9 % intravenous solution 50 mL 50 mL, intravenous, Once in imaging, Starting on Sun09/07/25 at 0906, For 1 dose 09/07/2025 09/07/2025 completed atenoloL (TENORMIN) 25 mg tablet TAKE ONE TABLET BY MOUTH EVERY DAY 07/13/2025 active apixaban (Eliquis) 5 mg tablet TAKE ONE TABLET BY MOUTH TWICE A DAY 07/07/2025 active alendronate (FOSAMAX) 70 mg tablet TAKE 1 TABLET WEEKLY WITH 8 OZ OF WATER. STAY UPRIGHT AND DO NOT LIE DOWN. AVOID FOOD AND DRINK FOR 30 MINUTES. 04/17/2025 active bisacodyL (DULCOLAX) 5 mg EC tablet Take 2 tablets by mouth right before beginning bowel prep. See instructions provided by the office 04/09/2025 active polyethylene glycol (Golytely) 236-22.74-6.74 -5.86 gram solution Take 4L by mouth once for one dose. May substitue any PEG. Starting at 6PM the night before your procedure drink 1 8oz glasses at your own pace until you complete half of the gallon. Finish 2nd half of the gallon 5 hours before your procedure. 04/09/2025 active zinc oxide 20 % ointment Apply topically if needed for irritation. 04/08/2025 active furosemide (LASIX) 40 mg tablet TAKE ONE TABLET BY MOUTH EVERY DAY 01/30/2025 active folic acid (FOLVITE) 1 mg tablet Take 1 tablet (1 mg total) by mouth 1 (one) time each day. 10/31/2024 active silver sulfADIAZINE (SILVADENE, SSD) 1 % cream Apply to affected area sparingly daily - twice daily to blister/open skin. 01/18/2024 active fluticasone propionate (FLONASE) 50 mcg/actuation nasal spray USE 2 SPRAYS IN EACH NOSTRIL ONCE DAILY 11/09/2021 active loratadine 10 mg capsule Take 1 Cap by mouth daily. active MULTIVITAMIN ORAL 1 po qd active UNABLE TO FIND Take 1 tablet by mouth 1 (one) time each day. Calcium Carbonate-Vit D-Min (CALCIUM 1200 OR) active Allergies Allergen Reaction Severity Comment Documented Date Source Statu s LEVOTHYROXINE Several constipation, and lower heart rate 09/19/2023 [facility] active ERYTHROMYCIN 01/05/2023 [facility] activ e CEFTRIAXONE Other Reaction(s): Other (See Comments), Rash/Dermatit is 01/10/2019 [facility] active OXYCODONE NAUSEA AND VOMITING 02/01/2015 [facility] active OTHER Seasonal allergies- Other Reaction(s): Runny Nose/Rhinitis 01/17/2011 [facility] active MONTELUKAST HEADACHE 06/15/2010 [facility] activ e SHELLFISH DERIVED Other Reaction(s): Hives/Urticar ia 01/06/2008 [facility] active PENICILLIN G BENZATHINE 11/02/2005 [facility] active Problems Problem Status Onset Date Problem Type Date of Resolution Source Venous insufficiency of both lower extremities active 2019-03-12 ProblemAct [facility] Lymphedema of both lower extremities active 2015-12-27 ProblemAct [facility] Subclinical hypothyroidism active 2023-06-28 ProblemAct [facility] Paroxysmal atrial fibrillation (CMS/HCC V24, CMS/HCC V28) active 2005-12-21 ProblemAct [facility] Encounter for adjustment or management of cardiac device active EncounterDiagnosisAct [facility] Arthritis of knee active 2018-10-02 ProblemAct [facility] Cardiac pacemaker in situ active 2006-05-09 ProblemAct [facility] Hypertension active 2024-04-04 ProblemAct [facility] Mitral regurgitation active 2005-12-21 ProblemAct [facility] Syncope and collapse active 2005-12-21 ProblemAct [facility] Hyperlipidemia active 2020-03-01 [address] [facility] Murmur, cardiac active 2025-04-[address] [facility] Morbid obesity ([facility] V24, [facility] V28) active 2025-04-08 ProblemAct [facility] Sick sinus syndrome ([facility] V24, [facility] V28) active 2023-12-17 ProblemAct [facility] Immunizations Vaccine Date Source Lot Number Status Moderna SARS-CoV-2 COVID-19, mRNA, LNP-S, preservative free 01/14/2024 [facility] completed Td Tetanus diptheria (Tdvax) 7yo and older 09/19/2023 [facility] [id number] completed Pfizer (ages 12 & older) Biv alent, COVID-19 07/30/2023 [facility] completed Moderna SARS-CoV-2 COVID-19, mRNA, LNP-S, preservative free 10/05/2022 [facility] completed Influenza trivalent, with pr eservative (Fluzone; Afluria) 6mo and older 07/19/2021 [facility] [id number] completed Zoster recombinant (Shingrix ) 19yo and older 06/18/2021 [facility] [id number] completed Zoster recombinant (Shingrix ) 19yo and older 04/14/2021 [facility] [id number] completed Influenza trivalent, with pr eservative (Fluzone; Afluria) 6mo and older 07/26/2020 [facility] [id number] completed Influenza trivalent, with pr eservative (Fluzone; Afluria) 6mo and older 08/12/2019 [facility] UNK completed Influenza trivalent, with pr eservative (Fluzone; Afluria) 6mo and older 08/05/2018 [facility] [id number] completed Influenza trivalent, 0.5mL ( Fluad) 65yo and older 07/27/2017 [facility] [id number] completed Pneumococcal polysaccharide 23 valent (Pneumovax 23) 2yo and older 06/18/2017 [facility] [id number] com pleted Influenza trivalent, with pr eservative (Fluzone; Afluria) 6mo and older 08/07/2016 [facility] [id number] completed Pneumococcal conjugate 13 va lent (Prevnar 13, PCV13) 2mo and older 08/23/2015 [facility] [id number] complet ed Influenza trivalent, with pr eservative (Fluzone; Afluria) 6mo and older 08/19/2015 [facility] [id number] completed Tdap Tetanus diptheria acell ular pertussis (Boostrix; Adacel) 7yo and older 10/13/2013 [facility] UNK completed Zoster Live 08/02/2013 [facility] completed Influenza trivalent, with pr eservative (Fluzone; Afluria) 6mo and older 07/28/2013 [facility] [id number] completed Zoster Live 04/30[id number] completed Pneumococcal polysaccharide 23 valent (Pneumovax 23) 2yo and older 04/19/2013 [facility] [id number] com pleted Influenza trivalent, with pr eservative (Fluzone; Afluria) 6mo and older 11/17/2012 [id number] completed Influenza trivalent, with pr eservative (Fluzone; Afluria) 6mo and older 07/13/2011 [facility] [id number] completed Influenza trivalent, with pr eservative (Fluzone; Afluria) 6mo and older 09/21/2010 [facility] [id number] completed H1N1 Inj Preservative Free 09/20/2009 [id number] completed Influenza trivalent, with pr eservative (Fluzone; Afluria) 6mo and older 08/12/2009 [facility] [id number] completed Tdap Tetanus diptheria acell ular pertussis (Boostrix; Adacel) 7yo and older 06/22/2009 [facility] [id number] completed Encounters Encounter Type Encounter Reason Primary Diagnosis Location Date Ambulatory Paroxysmal atrial fibrillation ([facility] V24, [facility] [place]28[place] Paroxys[facility] atrial fibrillation [place] [place]24, [facility] [place]28[place] [facility] [place] 09/07/2025 Care Team Organization Name Specialty Phone Email Start Date End Da te [facility] SOWMYA Primary Care 09/07/2025 [facility] ADRY DENG Primary Care 09/07/2025 [facility] ACO 06/24/2025 [facility] Jordan Wesley Primary Care 02/06/2023 06/23/2024 [facility] Risa Lopez Primary Care 09/12/202206/05
--- OUTSIDE RECORDS SUMMARY | 2025-10-07 10:27 | XMS_ITS | Clinical Summary ---
Author Organization [facility] Address [address] [place] [address] Care Team Providers Care Plant Health Care Technician Name Role Phone Jordan Wesley MD Primary Care Provider [phone] Allergies Active Allergy Reactions Criticality Noted Date Comments Ceftriaxone Other (See Comments) 01/10/2019 Erythromycin 01/05/2023 Oxycodone Nausea And Vomiting 02/01/2015 Penicillin G Other (See Comments) 01/05/2023 Shellfish 01/05/2023 Medications Medication Sig Dispensed Refills Start Date End Date Status Eliquis 5 MG TABS tablet Take 1 tablet (5 mg total) by mouth 2 (two) times a day. 0 10/09/2022 Active atenolol (TENORMIN) tablet 25 mg 0 01/02/2023 Active dilTIAZem (TIAZAC) 120 MG 24 hr capsule Take 1 capsule (120 mg total) by mouth. 0 04/05/2014 Active furosemide (LASIX) 40 MG tablet TAKE ONE TABLET BY MOUTH EVERY DAY 0 12/03/2022 Active Family History Medical History Relation Name Comments Diabetes Father Hypertension Father Hypertension Mother Relation Name Status Comments Father Mother Social History Tobacco Use Types Packs/Day Years Used Date Smoking Tobacco: Never Assessed Tobacco Cessation:Counseling Given: Not Answered Sex and Gender Information Value Date Recorded Sex Assigned at Not on file Gender Identity Not on file Sexual Orientation Not on file Job Start Date Occupation Industry Not on file Not on file Not on file Last Filed Vital Signs Vital Sign Reading Time Taken Comments Blood Pressure - - Pulse - - Temperature - - Respiratory Rate - - Oxygen Saturation - - Inhaled Oxygen Concentration - - Weight 97.5 kg (215 lb) 01/05/2023 9:28 AM EST Height 165.1 cm (5' 5 ) 01/05/2023 9:28 AM EST Body Mass Index 35.78 01/05/2023 9:28 AM EST Plan of Treatment Health Maintenance Due Date Last Done Comments Hepatitis C Screening 1950 COVID-19 Vaccine (#1) 1950 Depression Screening 1961 Preventative Health Evaluation 1967 Fall Risk Assessment 2014 Osteoporosis Screening (DEXA Scan) 2014 DTap / Tdap / Td (2 - Td or Tdap) 06/22/2019 06/22/2009 RSV Adult > 60+ Yrs or (1 - 1-dose 75+ series) 2024 Influenza Vaccine (#1) 2025 , 07/26/2020, 07/26/2020, Additional history exists Pneumococcal Vaccine Completed 06/18/2017, 08/23/2015, 04/19/2013 Shingrix-Zoster Vaccine Completed 06/18/2021, 04/14 Hepatitis B Vaccines Aged Out No long er eligible based on patient's age to complete this topic RSV Ped < 20 months Aged Out No longe r eligible based on patient's age to complete this topic Care Teams Plant Health Care Technician Relationship Specialty Start Date End Date Jordan Wesley MD [address] [facility] [place] [address] PCP - General Internal Medicine 12/29/22
== END 2025-10-07 09:58 | disposition home or self-care (01) ==
LOC: HO.HPHYS 09:33
PROVIDERS: Visit Provider Physician Assistant
DX: M17.0 Bilateral primary osteoarthritis of knee (principal)
CPT/HCPCS: 20610

== ENCOUNTER → 2025-10-07 09:32 | Outpatient (BNVA) | payer MEDICARE, SELFPAY | PROVIDERS: Visit Provider Physician Assistant | DX: M17.0 Bilateral primary osteoarthritis of knee (principal) | CPT/HCPCS: 20610; J2003; J3301 ==